=== PATIENT | female | born 1940 | race Caucasian/White ===

== ENCOUNTER 2021-01-28 14:16 | Emergency (ER) | payer MEDICARE, BC ==
--- NOTE | 2021-01-28 15:06 | ED Physician Documentation ---
History of Present Illness - Stated complaint Stated Complaint: FEVER,WEAKNESS,ACHY - Chief complaint Chief Complaint: General - History obtained from History obtained from: Patient, Family - History of Present Illness Timing: How many days ago (3) Pain level max: 3 Pain level now: 2 - Additonal information Additional information: Patient is a 80-year-old female who states that for the past 2 to 3 days she has had runny nose, congestion, sore throat and dry cough. Has not received her Covid vaccination. Has not taken anything for this. Is not on any medications at home. No nausea or vomiting. Small amount of diarrhea. No abdominal pain. She did have pneumonia several years ago. Nothing makes it better or worse. Review of Systems Ten Systems: 10 systems reviewed and negative Constitutional: denies: Fever, Chills Nose: reports: Congestion Throat: reports: Sore throat Cardiac: denies: Chest pain / pressure, Palpitations Respiratory: reports: Cough. denies: Dyspnea, Wheezing GI: denies: Abdominal Pain, Nausea, Vomiting, Diarrhea Skin: denies: Rash Musculoskeletal: denies: Neck pain, Back pain Neurologic: denies: Headache PD PAST MEDICAL HISTORY - Past Medical History Past Medical History: No - Present Medications Home Medications: Ambulatory Orders Medication Instructions Recorded Confirmed Benzonatate [Tessalon] 200 mg PO TID PRN #30 cap 01/28/21 Cetirizine HCl/Pseudoephedrine 1 each PO BID PRN #30 ea 01/28/21 [Zyrtec-D Tablet] - Allergies Allergies/Adverse Reactions: Allergies Allergy/AdvReac Type Severity Reaction Status Date / Time No Known Drug Allergies Allergy Verified 01/28/21 14:27 - Social History Does the pt smoke?: No Smoking Status: Never smoker Does the pt drink ETOH?: No Does the pt have substance abuse?: No - Immunizations Immunizations are current?: Yes PD ED PE NORMAL - Vitals Vital signs reviewed: Yes - General General: Alert and oriented X 3, No acute distress, Well developed/nourished - HEENT HEENT: PERRL, Ears normal, Moist mucous membranes, Other (Mild posterior pharyngeal erythema without tonsillar exudates. Appears consistent with postnasal drip. No sinus tenderness.) - Neck Neck: Supple, no meningeal sign, No adenopathy - Cardiac Cardiac: RRR, Strong equal pulses - Respiratory Respiratory: No respiratory distress, Clear bilaterally - Abdomen Abdomen: Soft, Non tender, Non distended - Back Back: No CVA TTP, No spinal TTP - Derm Derm: Warm and dry - Extremities Extremities: No edema - Neuro Neuro: Alert and oriented X 3 - Psych Psych: Normal mood, Normal affect Results - Vitals Vitals: Vital Signs - 24 hr 01/28/21 01/28/21 01/28/21 14:27 14:34 16:34 Temperature 37.3 C 37.3 C 36.8 C Heart Rate 75 75 67 Respiratory 16 16 16 Rate Blood Pressure 155/79 H 155/79 H 118/72 O2 Saturation 100 100 95 Oxygen O2 Source Room air - Rads (name of study) Chest x-ray Radiology: Prelim report reviewed, EMP read contemporaneously, See rad report (No acute abnormality) PD MEDICAL DECISION MAKING - ED course Complexity details: reviewed results, re-evaluated patient, considered differential, d/w patient ED course: 80-year-old female presents to the emergency department with what appears to be a viral upper respiratory infection. No acute findings on x-ray. Covid test was sent. Patient is well-appearing, nontoxic. Afebrile. No hypoxia. No respiratory distress. Tolerating p.o. without difficulty. We will continue supportive care and have her follow-up with her doctor for further care. Patient counseled regarding signs and symptoms for which I believe and urgent re-evaluation would be necessary. Patient with good understanding of and agreement to plan and is comfortable going home at this time This document was made in part using voice recognition software. While efforts are made to proofread this document, sound alike and grammatical errors may occur. Departure - Departure Disposition: 01 Home, Self Care Clinical Impression: Viral URI Condition: Good Instructions: ED Viral Syndrome Follow-Up: your,doctor in 1 week if not better [Other] Prescriptions: Benzonatate [Tessalon] 200 mg PO TID PRN #30 cap PRN Reason: Cough Cetirizine HCl/Pseudoephedrine [Zyrtec-D Tablet] 1 each PO BID PRN #30 ea PRN Reason: nasal congestion Comments: Drink plenty of fluids and rest. Return if you worsen. You have a Covid test pending. You need to self quarantine until the result is done and negative. Do not leave your house. Do not get near anybody. The results should be done in 48 to 72 hours. We will call with a positive result, the fastest way to get a negative result for confirmation though is to go to the hospital website at [email or web address], click on the my [email or web address] tab and sign up for the patient portal. Discharge Date/Time: 01/28/21 16:58
--- NOTE | 2021-01-28 16:14 | XRAY Report ---
PROCEDURE: Chest 1 View X-Ray INDICATIONS: fever, cough TECHNIQUE: One view of the chest was acquired. COMPARISON: None FINDINGS: Surgical changes and devices: None. Lungs and pleura: No pleural effusions or pneumothorax. Lungs are clear. Mediastinum: Mediastinal contours appear normal. Heart size is normal. Bones and chest wall: No suspicious bony lesions. Overlying soft tissues appear unremarkable. IMPRESSION: No evidence acute pulmonary process. Reviewed by: Thom Brandt MD on 01/28/2021 3:13 PM [facility] Approved by: Thom Brandt MD on 01/28/2021 3:13 PM [facility] Station ID: [id number]
[2021-01-28 16:58] VITALS: BP 118/72
== END 2021-01-28 16:58 | disposition home or self-care (01) ==
LOC: ED 14:16
DX: U07.1 COVID-19 (principal); J06.9 Acute upper respiratory infection, unspecified
CPT/HCPCS: 71045; 99284; U0004

== ENCOUNTER 2023-01-17 15:19 | Day surgery (SDC) | payer MEDICARE, BC ==
[2023-01-17] MEDS ORDERED: SODIUM CHLORIDE 0.9% 1,000 ML IV STA (15:42)
[2023-01-17] MEDS ORDERED: ONDANSETRON 4 MG/2 ML VIAL IVP STA (15:42)
--- NOTE | 2023-01-17 15:42 | ED Physician Documentation ---
PD HPI ABD PAIN - Stated complaint Stated Complaint: ABD/LB PX, CHILLS, NAUSEA - Chief complaint Chief Complaint: Abd Pain - History obtained from History obtained from: Patient - Additional information Additional information: This is a very healthy 82-year-old woman with history of exploratory laparotomy in the early at [place] for infectious colitis. Otherwise she has not had any abdominal surgeries. At noon today she suddenly developed nausea with bloating and central abdominal pain radiating to the back. She is never had this before. Had a normal bowel movement this morning. PD PAST MEDICAL HISTORY - Present Medications Home Medications: Ambulatory Orders Medication Instructions Recorded Confirmed Benzonatate [Tessalon] 200 mg PO TID PRN #30 cap 01/28/21 Cetirizine HCl/Pseudoephedrine 1 each PO BID PRN #30 ea 01/28/21 [Zyrtec-D Tablet] - Allergies Allergies/Adverse Reactions: Allergies Allergy/AdvReac Type Severity Reaction Status Date / Time No Known Drug Allergies Allergy Verified 01/17/23 15:30 - Social History Does the pt smoke?: No Smoking Status: Never smoker Does the pt drink ETOH?: No Does the pt have substance abuse?: No - Immunizations Immunizations are current?: Yes PD ED PE NORMAL - Vitals Vital signs reviewed: Yes - General General: Alert and oriented X 3, No acute distress - Cardiac Cardiac: RRR, No murmur - Respiratory Respiratory: No respiratory distress, Clear bilaterally - Abdomen Abdomen: Other (Absent bowel sounds with minimal diffuse tenderness and no surgical signs.) - Neuro Neuro: Alert and oriented X 3, Normal speech Results - Vitals Vitals: Vital Signs - 24 hr 01/17/23 01/17/23 15:25 15:29 Temperature 36 C L 36.5 C Heart Rate 65 65 Respiratory 16 16 Rate Blood Pressure 174/78 H 174/78 H O2 Saturation 100 100 Oxygen O2 Source Room air - Labs Labs: Laboratory Tests 01/17/23 01/17/23 01/17/23 15:34 15:46 16:10 WBC 15.7 H RBC 4.99 Hgb 14.9 Hct 45.4 MCV 91.0 MCH 29.9 MCHC 32.8 RDW 12.4 Plt Count 263 MPV 10.3 Neut # (Auto) 13.2 H Lymph # (Auto) 1.7 Morris # (Auto) 0.7 Eos # (Auto) 0.0 Baso # (Auto) 0.0 Absolute Nucleated RBC 0.00 Nucleated RBC % 0.0 Sodium 139 Potassium 3.4 L Chloride 107 Carbon Dioxide 26 Anion Gap 6.0 BUN 16 Creatinine 0.7 Estimated GFR (MDRD) 81 L Glucose 137 H Calcium 8.6 Total Bilirubin 1.6 H AST 171 H ALT 112 H Alkaline Phosphatase 67 Total Protein 6.2 L Albumin 3.6 Globulin 2.6 Albumin/Globulin Ratio 1.4 Lipase 31 Urine Color YELLOW Urine Clarity CLEAR Urine pH 6.5 Ur Specific [place] 1.025 Urine Protein NEGATIVE Urine Glucose (UA) NEGATIVE Urine Ketones TRACE Urine Occult Blood NEGATIVE Urine Nitrite NEGATIVE Urine Bilirubin NEGATIVE Urine Urobilinogen 0.2 (NORMAL) Ur Leukocyte Esterase NEGATIVE Ur Microscopic Review NOT INDICATED Urine Culture Comments NOT INDICATED - Rads (name of study) CT abdomen pelvis suggestive of cholecystitis. Also left duplicated collecting system with some ureteral stones but no hydronephrosis. Relevant Findings:: Final report received, EMP independent interpretation of test PD Medical Decision Making - ED course ED course: 82-year-old woman presents with diffuse abdominal pain. On repeat examination after some IV Dilaudid she was feeling much better and her tenderness is localized to the right upper quadrant. CT and ultrasound imaging suggestive of cholecystitis. Discussed case with Dr. Simeon, our on-call surgeon at 5:45 PM and she will see the patient and plan for the OR tonight. Of note she will probably have to recover in the ED overnight because of lack of floor bed. Departure - Departure Disposition: ED Transfer to [facility] Clinical Impression: Cholecystitis Condition: Stable
[2023-01-17] MEDS ORDERED: HYDROmorphone 0.5 MG/0.5 ML SYRINGE IVP STA (15:45)
[2023-01-17 15:52] LABS: BASOPHILS % (AUTO) 0.3 %; EOSINOPHILS % (AUTO) 0.2 %; HCT - HEMATOCRIT 45.4 % (37.0-47.0); HGB - HEMOGLOBIN 14.9 g/dL (12.0-16.0); LYMPHOCYTES # (AUTO) 1.7 10^3/uL (1.5-3.5); LYMPHOCYTES % (AUTO) 10.8 %; MEAN CORPUSCULAR HEMOGLOBIN 29.9 pg (27.0-31.0); MEAN CORPUSCULAR HGB CONC 32.8 g/dL (32.0-36.0); MEAN PLATELET VOLUME 10.3 fL (7.9-10.8); MONOCYTES # (AUTO) 0.7 10^3/uL (0.0-1.0); MONOCYTES % (AUTO) 4.6 %; NEUTROPHILS # (AUTO) 13.2 10^3/uL (1.5-6.6); NEUTROPHILS % (AUTO) 83.8 %; PLT - PLATELET COUNT 263 10^3/uL (130-450); RED BLOOD COUNT 4.99 10^6/uL (4.20-5.40); RED CELL DISTRIBUTION WIDTH 12.4 % (12.0-15.0); WHITE BLOOD COUNT 15.7 x10^3/uL (4.8-10.8)
[2023-01-17 15:54] LABS: BILIRUBIN,URINE NEGATIVE (NEGATIVE); GLUCOSE, URINE (UA) NEGATIVE (NEGATIVE); KETONES,URINE (UA) TRACE mg/dL (NEGATIVE); LEUKOCYTE ESTERASE, URINE NEGATIVE (NEGATIVE); NITRITE,URINE NEGATIVE (NEGATIVE); OCCULT BLOOD,URINE NEGATIVE (NEGATIVE); PH,URINE 6.5 PH (5.0-7.5); PROTEIN,URINE NEGATIVE (NEGATIVE); UROBILINOGEN,URINE 0.2 (NORMAL) E.U./dL (NORMAL)
[2023-01-17 15:55] LABS: CLARITY,URINE CLEAR (CLEAR)
[2023-01-17 16:28] LABS: ALBUMIN 3.6 g/dL (3.2-5.5); ALBUMIN/GLOBULIN RATIO 1.4 (1.0-2.2); BILIRUBIN,TOTAL 1.6 mg/dL (0.2-1.0); CALCIUM 8.6 mg/dL (8.5-10.3); CREATININE 0.7 mg/dL (0.4-1.0); POTASSIUM 3.4 mmol/L (3.5-5.0); TOTAL PROTEIN 6.2 g/dL (6.7-8.2)
[2023-01-17] MEDS ORDERED: iohexoL-300 100 ML VIAL ONE (16:36)
[2023-01-17] MEDS ORDERED: iohexoL-300 100 ML VIAL IVP ONE (16:45)
--- NOTE | 2023-01-17 17:08 | CT Report ---
PROCEDURE: ABDOMEN/PELVIS W INDICATIONS: Abdominal pain, acute, nonlocalized, IV only CONTRAST: 100mL Omni 300 TECHNIQUE: After the administration of intravenous contrast, 5 mm thick sections acquired from the diaphragms to the symphysis. 5 mm thick coronal and sagittal reformats were acquired. For radiation dose reducti on, the following was used: automated exposure control, adjustment of mA and/or kV according to keisha ent size. COMPARISON: None FINDINGS: Image quality: Excellent. Lung bases and heart: Unremarkable. Liver: Subcentimter hypoattenuating liver lesions, too small to characterize by CT. Gallbladder and biliary tree: Cholelithiasis. Gallbladder distention with focal wall thickening along the gallbladder fossa. No pericholecystic edema. Spleen: No splenomegaly. Pancreas: No pancreatic ductal dilation. Adrenals: No adrenal nodule. Kidneys and ureters: Duplex left renal collecting system, with atrophy of the upper moiety and multip le sub-5 mm stones within the ureter, and a 6 mm stone in the left UVJ. Bowel and peritoneum: No bowel distension. No pathologic free fluid. Acute diverticulitis of the LOCA TION. Lymph nodes: No central or retroperitoneal adenopathy. Vessels: No infrarenal aortic aneurysm. PELVIS Reproductive organs: Unremarkable. Bladder: No abnormal wall thickening, accounting for underdistension. Pelvic lymph nodes: No pelvic adenopathy by size criteria. Bones: No aggressive osseous abnormality. Other: No significant ventral or inguinal hernia. IMPRESSION: Cholelithiasis with focal gallbladder wall thickening and gallbladder distention, concerning for azael y acute cholecystitis. Duplex left renal collecting system, with atrophy of the upper moiety and multiple sub-5 mm stones wi thin the ureter, and a 6 mm stone in the left UVJ. The lower pole moiety is not affected by these fin dings. Reviewed by: Glen Geiger on 01/17/2023 5:07 PM PDT Approved by: Glen Geiger on 01/17/2023 5:07 PM PDT Station ID: [id number]
--- NOTE | 2023-01-17 17:56 | Ultrasound Report ---
PROCEDURE: Abdomen Limited INDICATIONS: abd pain, eval gb TECHNIQUE: Real-time focused scanning was performed of the abdomen, with image documentation. COMPARISONS: None. FINDINGS: Liver measures 12 cm. Overall echogenicity is slightly increased. Right lobe cyst measures up to 1.3 cm. Positive Walls's sign. Cholelithiasis. CBD measures up to 7 mm. Pancreas is within normal limits where visualized. Right kidney measures 11 cm. Possible right pelvocaliectasis. IMPRESSION: Sonographic findings consistent with cholecystitis. Borderline dilated CBD measuring 7 mm. Consider M LIFT TE[employer] TECHNICIAN or ERCP if further evaluation is needed. Mildly coarsened echogenic liver, nonspecific but most commonly chronic fibrofatty infiltration. Possible mild right pelvocaliectasis, partially seen. Reviewed by: Rene Logan MD on 01/17/2023 5:54 PM PDT Approved by: Rene Logan MD on 01/17/2023 5:54 PM PDT Station ID: [id number]
[2023-01-17] MEDS ORDERED: MORPHINE 2 MG/ML CARPUJECT IVP PRN ×2 (18:31→19:06)
[2023-01-17] MEDS ORDERED: ONDANSETRON 4 MG/2 ML VIAL IVP PRN ×3 (18:31→22:12)
[2023-01-17] MEDS ORDERED: ceFAZolin 1 GM VIAL IVP STA (18:31)
--- NOTE | 2023-01-17 18:38 | SURGERY HX AND PHYSICAL(T) ---
Surgical History & Physical - Chief Complaint/HPI Chief Complaint: nausea History of Present Illness: This is an 82-year-old female who complains of acute onset of nausea and diffuse abdominal pain at approximately noon today. She ate at 930 this morning and had baked oatmeal. She has never had similar pain in the past. Over the next hour or two her pain worsened and migrated to the back prompting her to come to the emergency department. She denies any fevers or chills. She denies any vomiting. She denies any trouble with constipation, diarrhea, blood in her stool or unintentional weight loss. At the time of my exam, she is feeling somewhat better but notes this is likely due to pain medication. - PMH/PSH/Social Hx Does the pt have a hx of MRSA?: No General: Other (Diagnostic laparoscopy for colitis) Smoking Status: Never smoker Does the pt drink ETOH?: No Does the pt have substance abuse?: No - Family Hx Family Hx: Unremarkable - Home Meds and Allergies Allergies/Adverse Reactions: Allergies Allergy/AdvReac Type Severity Reaction Status Date / Time No Known Drug Allergies Allergy Verified 01/17/23 15:30 - Review of Systems Constitutional: Other (A complete 10 point review of symptoms is otherwise ne gative except for that noted in HPI and PMH.) - Vital Signs Heart Rate: 65 Blood Pressure: 174/78 Temperature: 36.5 C Respiratory Rate: 16 O2 Saturation: 100 Weight (kg): 61.235 kg Height: 1.57 m - Physical Exam Comments/Other: GEN: No acute distress, appears younger than stated age, alert and oriented HEENT: NCAT, MMM, EOMI NEURO: CN II-XII grossly intact, no obvious focal deficits CV: RRR PULM: Nonlabored, on room air ABD: soft, point tenderness in the right upper quadrant with deep palpation, questionable Walls sign, otherwise nontender, no rebound or guarding CIRCULATORY: no clubbing, cyanosis, or edema SKIN: no lesions appreciated LYMPH: no obvious lymphadenopathy MSK: 4/4 strength in all extremities PSYCH: Affect is appropriate Imaging: Sono 01/17/23- Sonographic findings consistent with cholecystitis. Borderline dilated CBD measuring 7 mm. Consider MRCP or ERCP if further evaluation is needed. Mildly coarsened echogenic liver, nonspecific but most commonly chronic fibrofatty infiltration. Possible mild right pelvocaliectasis, partially seen. On my intrepretation, patient has gallstones with borederline wall thickening and no PCF. CBD is also borderline large. CT 01/17/23- Cholelithiasis with focal gallbladder wall thickening and gallbladder distention, concerning for early acute cholecystitis. Duplex left renal collecting system, with atrophy of the upper moiety and multiple sub-5 mm stones within the ureter, and a 6 mm stone in the left UVJ. The lower pole moiety is not affected by these findings. On my review of the images, +gallstones, minimal surrounding inflammation I personally reviewed the images and reports and independently intrepreted the above studies. - Patient Review Patient Review: Problems were reviewed with the patient during this visit. Medications were reviewed with the patient during this visit. Allergies were reviewed this patient during this visit. Pertinent Tests Reviewed: All pertitent test for this patient were reviewed. - Assessment & Plan Assessment and Plan: This is an 82-year-old female with: 1. Early acute cholecystitis The patient's imaging, history, labs, and physical exam are consistent with this diagnosis -I discussed the findings from the patient's imaging with the patient. She is feeling somewhat better, but continues to have some nausea and pain. After discussing options including a p.o. trial with possible dismissal home and elective resection of her gallbladder versus taking out her gallbladder today, the patient would rather proceed with surgery at this time. I think this is prudent given her frequent travel plans. We discussed the risks, benefits, and alternatives of laparoscopic cholecystectomy including bleeding, infection, damage to surrounding structures, bile leakage, damage to the common bile duct, possible need for an open procedure, and the need for further surgeries or procedures. The patient voiced understanding, her questions were answered, and she wished to proceed. PAR-Q. A consent was signed by the patient in the emergency department. The patient's , Lino, was also present for the discussion, and is agreeable to the plan. -NPO until after surgery -Plan for surgery tonight, and likely discharge tomorrow morning -I would like the patient to follow-up with me in clinic in 2 weeks.
[2023-01-17] MEDS ORDERED: ROCURONIUM 50 MG/5 ML VIAL ONE (18:54)
[2023-01-17] MEDS ORDERED: LIDOCAINE-PF 2% 10 ML AMP SUBQ ONE (18:54)
[2023-01-17] MEDS ORDERED: PROPOFOL 200 MG/20 ML VIAL IVP ONE (18:54)
[2023-01-17] MEDS ORDERED: metroNIDAZOLE 500 MG/100 ML 500 MG/100 ML BAG IV ONE (19:00)
[2023-01-17] MEDS ORDERED: ceFAZolin 2 GM in SODIUM CHLORIDE 0.9% 100ML 100 ML IV ONE (19:00)
[2023-01-17] MEDS ORDERED: fentaNYL 100 MCG/2 ML VIAL IVP PRN (19:06)
[2023-01-17] MEDS ORDERED: ATROPINE ABBOJECT 1 MG/10 ML SYRINGE IVP PRN (19:06)
[2023-01-17] MEDS ORDERED: ePHEDrine 50 MG/ML VIAL IVP PRN (19:06)
[2023-01-17] MEDS ORDERED: METOCLOPRAMIDE 10 MG/2 ML VIAL IVP PRN (19:06)
[2023-01-17] MEDS ORDERED: HYDROmorphone 0.5 MG/0.5 ML SYRINGE IVP PRN (19:06)
[2023-01-17] MEDS ORDERED: NALOXONE 0.4 MG/ML VIAL IVP PRN (19:06)
--- NOTE | 2023-01-17 19:06 | ANESTHESIA ---
Pre-Anesthesia VS, & Labs - Diagnosis cholecystitis - Procedure lap [email or web address] Vital Signs: Temp Pulse Resp BP Pulse Ox O2 Flow Rate 36.5 C 65 16 174/78 H 100 01/17/23 18:45 01/17/23 18:45 01/17/23 18:45 01/17/23 18:45 01/17/23 18:45 Height: 5 ft 2 in Weight (kg): 61.235 kg Body Mass Index: 24.7 BMI Classification: Normal - NPO >8 hours - Is Patient ?: No - Lab Results Current Lab Results: Laboratory Tests 01/17/23 16:10: Sodium 139, Potassium 3.4 L, Chloride 107, Carbon Dioxide 26, Anion Gap 6.0, BUN 16, Creatinine 0.7, Estimated GFR (MDRD) 81 L, Glucose 137 H, Calcium 8.6, Total Bilirubin 1.6 H, AST 171 H, ALT 112 H, Alkaline Phosphatase 67, Total Protein 6.2 L, Albumin 3.6, Globulin 2.6, Albumin/Globulin Ratio 1.4, Lipase 31 01/17/23 15:46: WBC 15.7 H, RBC 4.99, Hgb 14.9, Hct 45.4, MCV 91.0, MCH 29.9, MCHC 32.8, RDW 12.4, Plt Count 263, MPV 10.3, Neut # (Auto) 13.2 H, Lymph # (Auto) 1.7, Boyd # (Auto) 0.7, Eos # (Auto) 0.0, Baso # (Auto) 0.0, Absolute Nucleated RBC 0.00, Nucleated RBC % 0.0 Fish Bones: 01/17/23 15:46 01/17/23 16:10 Home Medications and Allergies Active Medications Sodium Chloride (Normal Saline 0.9%) 1,000 mls @ 125 mls/hr IV .Q8H LOLLY Cefazolin Sodium 2 gm/ Sodium (Chloride) 100 mls @ 200 mls/hr IV ONCE ONE Stop: 01/17/23 19:29 Metronidazole (Flagyl 500 Mg/100 Ml) 500 mg in 100 mls @ 100 mls/hr IV ONCE ONE Stop: 01/17/23 19:59 Morphine Sulfate (Morphine 2 Mg/Ml Carpuject) 4 mg IVP Q2HR PRN PRN Reason: PAIN >8 Ondansetron HCl (Ondansetron 4 Mg/2 Ml Vial) 4 mg IVP Q6HR PRN PRN Reason: Nausea / Vomiting Allergies/Adverse Reactions: Allergies Allergy/AdvReac Type Severity Reaction Status Date / Time No Known Drug Allergies Allergy Verified 01/17/23 15:30 Anes History & Medical History - Anesthetic History Anesthesia Complications: reports: Slow wake-up Family history of Anesthesia Complications: Denies Family history of Malignant Hyperthermia: Denies - Medical History Cardiovascular: reports: None Pulmonary: reports: None Gastrointestinal: reports: Other (cholecystitis) Urinary: reports: None Neuro: reports: None Musculoskeletal: reports: None Endocrine/Autoimmune: reports: None Smoking Status: Never smoker Psychosocial: reports: No issues indicated History of Cancer?: Yes - Surgical History General: reports: Other (Diagnostic laparoscopy for colitis) Dermatologic: reports: Skin grafts, Skin cancer surgery, Other (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
[2023-01-17] MEDS ORDERED: LIDOCAINE 1%-EPI 1:100000 20 ML MDV ONE (19:08)
[2023-01-17] MEDS ORDERED: BUPIVACAINE 0.25% PF 30 ML VIAL ONE (19:09)
[2023-01-17] MEDS ORDERED: iohexoL-240 10 ML VIAL IVP ONE ×2 (19:12→21:31)
[2023-01-17] MEDS ORDERED: ceFAZolin 1 GM VIAL ONE (19:39)
[2023-01-17] MEDS ORDERED: metroNIDAZOLE 500 MG/100 ML 500 MG/100 ML BAG ONE (19:43)
[2023-01-17] MEDS ORDERED: GLYCOPYRROLATE 1 MG/5 ML VIAL ONE (19:44)
[2023-01-17] MEDS ORDERED: BUPIVACAINE 0.25% PF 30 ML VIAL SUBQ ONE ×2 (19:52)
[2023-01-17] MEDS ORDERED: LIDOCAINE 1%-EPI 1:100000 20 ML MDV SUBQ ONE ×2 (19:52)
[2023-01-17] MEDS ORDERED: ACETAMINOPHEN 1,000 MG/100 ML 1,000 MG/100 ML BAG IV ONE (19:53)
[2023-01-17] MEDS ORDERED: LACTATED RINGERS 1,000 ML IV SCH (20:00)
[2023-01-17] MEDS ORDERED: GLUCAGON 1 MG/ML VIAL ONE (21:24)
[2023-01-17] MEDS ORDERED: SUGAMMADEX 200 MG/2 ML VIAL IVP ONE (21:56)
[2023-01-17] MEDS ORDERED: ACETAMINOPHEN 325 MG TABLET PO PRN (22:12)
[2023-01-17] MEDS ORDERED: IBUPROFEN 600 MG TABLET PO PRN (22:12)
[2023-01-17] MEDS ORDERED: LACTATED RINGERS 1,000 ML IV ONE (22:15)
--- NOTE | 2023-01-17 22:18 | OPERATIVE REPORT ---
Operative Report - General Procedure Date: 01/17/23 Planned Procedure: laparoscopic cholecystectomy with cholangiogram, possible open Pre-Op Diagnosis: acute cholecystitis Procedure Performed: laparoscopic cholecystectomy with cholangiogram Post Op Diagnosis: acute cholecystitis, possible choledocholithiasis, cholelithiasis - Procedure Note Primary Surgeon: Dr. Charlene Simeon Anesthesia Provider: Yareli Gonzalez CRNA Anesthesia Technique: General ET tube, Local Pathology: gallbladder and contents, sent to pathology Estimated Blood Loss (mL): 20 Indications: Patient presented with a 1 day history of abdominal pain. Her laboratory studies and imaging are consistent with acute cholecystitis. She was seen and evaluated in the emergency department. We discussed the risks, benefits, and alternatives of laparoscopic cholecystectomy including bleeding, infection, damage to surrounding structures, and the need for further surgeries or procedures. The patient voiced understanding, her questions were answered, and she wished to proceed. A consent was signed by the patient prior to surgery. Findings: 1.Poor filling of the duodenum on cholangiogram even after administration of glucagon 2. cholelithiasis 3. early acute cholecystitis Complications: None - Other Other Information/Narrative: The patient was brought to the operative suite and placed in the supine position. General endotracheal anesthesia was induced. Preoperative antibiotics were given. ERAS protocol was not followed secondary to patient nausea. A preop surgical timeout was performed. Local anesthetic was injected into the skin and subcutaneous tissues just inferior to the umbilicus. An 15 blade scalpel was used to make a 12 mm longitudinal skin incision in this location, following the patient's previous surgical scar. Sharp dissection with electrocautery was used to dissect down to the fascia and the fascia was incised. 2 [id number] sutures of 0 Vicryl were placed in the fascia. The deep peritoneum was entered and a 10 mm Bob port was placed in this location. High flow insufflation was used to insufflate to 15 mmHg. Through this port, a 5 mm 30 degree laparoscope was inserted. On inspection of the abdomen no injury was caused on entry. Next, the patient was placed in reverse Trendelenburg and rotated slightly to the left. Two 5 mm ports were inserted in the right upper quadrant, one in the anterior axillary line and the other in the midclavicular line. Also, a 12 mm port was inserted in the subxiphoid region. All ports were placed by first anesthetizing the skin and subcutaneous tissues with local anesthetic, then by making an appropriate length incision with an 11 blade scalpel, and finally by placing the port under direct laparoscopic vision. Once the ports were in place, a ratcheted, toothed grasper was used to elevate the fundus of the gallbladder toward the patient's right shoulder. The gallbladder was noted to be very tense and a laparoscopic aspiration needle was placed into the lumen of the gallbladder and a significant amount of bile was returned. Once decompressed, the gallbladder was retracted toward the patient's right shoulder. Next, the peritoneum was incised starting at the hilum of the gallbladder and working toward the fundus along the gallbladder liver interface on the medial and lateral aspects of the gallbladder. Next, attention was returned to the hilum of the gallbladder. The alveolar tissues in this region were taken down with blunt and sharp dissection with electrocautery taking great care not to cauterize though any tissue I could not easily see through. Two ductal structures were isolated and skeletonized such that each ductal structure could be visualized with liver present on either s daisha. The cystic plate was also developed. At this time, it was felt that a critical view of safety had been obtained. The cystic artery was noted to branch low. Next, a clip was placed distally, that is toward the gallbladder, on the cystic duct and just proximal to this a ductotomy was performed. A cholangiogram catheter was placed within the duct and it was flushed with saline. There was no leakage and it flushed easily. Clips were also placed proximally and distally on the cystic artery. Full strength Isovue dye was then placed on the cholangiogram catheter and a cholangiogram was performed. The cholangiogram demonstrated poor filling of the duodenum. Glucagon was given to the patient and after 3 minutes, an additional cholangiogram was performed. The duodenum still did not feel well but no obvious stone was noted in the distal common bile duct. Next the cholangiogram catheter was removed. Two clips were placed proximally on the cystic duct. Between the 2 clips a Endoloop was placed as the cystic duct was under more pressure than typical given the distal common bile duct obstruction. The cystic duct and cystic artery were divided using laparoscopic scissors between the clips. Next the gallbladder was dissected off of the liver bed. Once it was completely freed, the gallbladder was placed in an Endo Catch bag and removed through the umbilical port. The umbilical port was replaced and suction and irrigation were used to remove any fluid from the right upper quadrant. This was done until the fluid returned was clear. Next, the fascial sutures were tied at the umbilical port. The remaining ports were removed under direct laparoscopic vision and the abdomen was deflated. Next, the skin edges were reapproximated with 4-0 Monocryl in an interrupted subcuticular fashion. A sterile dressing of skin glue was placed. The patient tolerated the procedure well. The patient was extubated in the operating room and transferred to the recovery room in stable condition. There were no complications.
[2023-01-17] MEDS: fentaNYL 100 MCG/2 ML VIAL ONE ×2 (22:40→22:45)
--- NOTE | 2023-01-17 22:41 | ANESTHESIA POST OP EVALUATION ---
Anesthesia Post Eval - Post Anesthesia Eval Vitals: Last Vital Signs Temp 36.6 C 01/17/23 22:30 Pulse 84 01/17/23 22:30 Resp 16 01/17/23 22:30 BP 127/65 01/17/23 22:30 Pulse Ox 97 01/17/23 22:30 O2 Flow Rate CV Function Including HR & BP: Stable Pain Control: Satisfactory Nausea & Vomiting: Negative Mental Status: Baseline Respiratory Status: Airway Patent Hydration Status: Satisfactory Anesthesia Complications: None
[2023-01-17] MEDS ORDERED: SODIUM CHLORIDE 0.9% 1,000 ML IV SCH (23:00)
[2023-01-18] MEDS ORDERED: IBUPROFEN 400 MG TABLET PO PRN (03:41)
[2023-01-18] MEDS: SODIUM CHLORIDE 0.9% 1,000 ML IV SCH ×2 (04:17→13:05)
[2023-01-18] MEDS: oxyCODONE 5 MG TABLET PO PRN ×2 (04:17→13:05)
[2023-01-18 05:25] LABS: ALBUMIN 3.4 g/dL (3.2-5.5); ALBUMIN/GLOBULIN RATIO 1.5 (1.0-2.2); BILIRUBIN,TOTAL 2.3 mg/dL (0.2-1.0); CALCIUM 7.9 mg/dL (8.5-10.3); CREATININE 0.7 mg/dL (0.4-1.0); POTASSIUM 3.6 mmol/L (3.5-5.0); TOTAL PROTEIN 5.6 g/dL (6.7-8.2)
--- NOTE | 2023-01-18 08:18 | PROVIDER PROGRESS NOTE ---
Subjective - General Procedure Date: 01/17/23 Post Op Days: 1 Procedure Performed: renata arteaga with IOC - Review of Systems Wound/Incisions: positive: Healing well - Other Other Information/Narrative: Tolerating clears. No nausea this AM. She is feeling much better this AM. Objective - Patient Data Reviewed Vital Signs: Yes Vital Signs: Vital Signs x48h Temp Pulse Pulse Resp BP BP Pulse Ox 01/18/23 08:07 36.6 C 66 18 132/60 H 98 01/18/23 04:45 36.6 C 64 64 16 109/49 L 109/49 L 100 01/18/23 03:45 59 L 118/52 L 100 01/18/23 02:45 59 L 125/56 L 100 01/18/23 01:45 63 114/49 L 100 01/18/23 00:45 59 L 111/48 L 100 O2 Flow Rate 01/18/23 08:07 1 01/18/23 04:45 1 01/18/23 03:45 01/18/23 02:45 01/18/23 01:45 01/18/23 00:45 Weight: Weight 01/16/23 01/17/23 01/18/23 23:59 23:59 23:59 Weight (kg) 61.235 kg Intake & Output: Intake and Output Totals x24h 01/16/23 01/17/23 01/18/23 23:59 23:59 23:59 Intake Total 1000 Output Total 425 Balance 1000 -425 - Lab Results Lab Results: 01/17/23 15:46 01/18/23 04:43 Other Lab Results: Lab Results x24hrs 01/18/23 01/17/23 01/17/23 Range/Units 04:43 16:10 15:46 WBC 15.7 H (4.8-10.8) x10^3/uL RBC 4.99 (4.20-5.40) 10^6/uL Hgb 14.9 (12.0-16.0) g/dL Hct 45.4 (37.0-47.0) % MCV 91.0 (81.0-99.0) fL MCH 29.9 (27.0-31.0) pg MCHC 32.8 (32.0-36.0) g/dL RDW 12.4 (12.0-15.0) % Plt Count 263 (130-450) 10^3/uL MPV 10.3 (7.9-10.8) fL Neut # (Auto) 13.2 H (1.5-6.6) 10^3/uL Lymph # (Auto) 1.7 (1.5-3.5) 10^3/uL Motley # (Auto) 0.7 (0.0-1.0) 10^3/uL Eos # (Auto) 0.0 (0.0-0.7) 10^3/uL Baso # (Auto) 0.0 (0.0-0.1) 10^3/uL Absolute Nucleated RBC 0.00 x10^3/uL Nucleated RBC % 0.0 /100WBC Sodium 138 139 (135-145) mmol/L Potassium 3.6 3.4 L (3.5-5.0) mmol/L Chloride 105 107 (101-111) mmol/L Carbon Dioxide 25 26 (21-32) mmol/L Anion Gap 8.0 6.0 (6-13) BUN 11 16 (6-20) mg/dL Creatinine 0.7 0.7 (0.4-1.0) mg/dL Estimated GFR (MDRD) 81 L 81 L (>89) Glucose 117 H 137 H (70-100) mg/dL Calcium 7.9 L 8.6 (8.5-10.3) mg/dL Total Bilirubin 2.3 H 1.6 H (0.2-1.0) mg/dL AST 321 H 171 H (10-42) IU/L ALT 296 H 112 H (10-60) IU/L Alkaline Phosphatase 70 67 (42-121) IU/L Total Protein 5.6 L 6.2 L (6.7-8.2) g/dL Albumin 3.4 3.6 (3.2-5.5) g/dL Globulin 2.2 2.6 (2.1-4.2) g/dL Albumin/Globulin Ratio 1.5 1.4 (1.0-2.2) Lipase 26 31 (22-51) U/L Urine Color Urine Clarity (CLEAR) Urine pH (5.0-7.5) PH Ur Specific [place] (1.002-1.030) Urine Protein (NEGATIVE) mg/dL Urine Glucose (UA) (NEGATIVE) mg/dL Urine Ketones (NEGATIVE) mg/dL Urine Occult Blood (NEGATIVE) Urine Nitrite (NEGATIVE) Urine Bilirubin (NEGATIVE) Urine Urobilinogen (NORMAL) E.U./dL Ur Leukocyte Esterase (NEGATIVE) Ur Microscopic Review Urine Culture Comments 01/17/23 Range/Units 15:34 WBC (4.8-10.8) x10^3/uL RBC (4.20-5.40) 10^6/uL Hgb (12.0-16.0) g/dL Hct (37.0-47.0) % MCV (81.0-99.0) fL MCH (27.0-31.0) pg MCHC (32.0-36.0) g/dL RDW (12.0-15.0) % Plt Count (130-450) 10^3/uL MPV (7.9-10.8) fL Neut # (Auto) (1.5-6.6) 10^3/uL Lymph # (Auto) (1.5-3.5) 10^3/uL Motley # (Auto) (0.0-1.0) 10^3/uL Eos # (Auto) (0.0-0.7) 10^3/uL Baso # (Auto) (0.0-0.1) 10^3/uL Absolute Nucleated RBC x10^3/uL Nucleated RBC % /100WBC Sodium (135-145) mmol/L Potassium (3.5-5.0) mmol/L Chloride (101-111) mmol/L Carbon Dioxide (21-32) mmol/L Anion Gap (6-13) BUN (6-20) mg/dL Creatinine (0.4-1.0) mg/dL Estimated GFR (MDRD) (>89) Glucose (70-100) mg/dL Calcium (8.5-10.3) mg/dL Total Bilirubin (0.2-1.0) mg/dL AST (10-42) IU/L ALT (10-60) IU/L Alkaline Phosphatase (42-121) IU/L Total Protein (6.7-8.2) g/dL Albumin (3.2-5.5) g/dL Globulin (2.1-4.2) g/dL Albumin/Globulin Ratio (1.0-2.2) Lipase (22-51) U/L Urine Color YELLOW Urine Clarity CLEAR (CLEAR) Urine pH 6.5 (5.0-7.5) PH Ur Specific [place] 1.025 (1.002-1.030) Urine Protein NEGATIVE (NEGATIVE) mg/dL Urine Glucose (UA) NEGATIVE (NEGATIVE) mg/dL Urine Ketones TRACE (NEGATIVE) mg/dL Urine Occult Blood NEGATIVE (NEGATIVE) Urine Nitrite NEGATIVE (NEGATIVE) Urine Bilirubin NEGATIVE (NEGATIVE) Urine Urobilinogen 0.2 (NORMAL) (NORMAL) E.U./dL Ur Leukocyte Esterase NEGATIVE (NEGATIVE) Ur Microscopic Review NOT INDICATED Urine Culture Comments NOT INDICATED - Current Medications Current Medications: Current Medications Generic Name Dose Route Start Last Admin Trade Name Freq PRN Reason Stop Dose Admin Sodium Chloride 1,000 mls @ 125 mls/hr 01/17/23 19:00 01/18/23 04:17 Normal Saline 0.9% IV 125 mls/hr .Q8H LOLLY Administration Oxycodone HCl 5 mg 01/17/23 22:12 01/18/23 04:17 Oxycodone 5 Mg Tablet PO 5 mg Q4HR PRN Administration PAIN >8 - Physical Exam Wound/Incisions: positive: Dressing dry and intact, No drainage General Appearance: positive: No acute distress, Alert Eyes Bilateral: positive: PERRL, EOMI ENT: positive: No signs of dehydration Neck: positive: Trachea midline Respiratory: positive: No respiratory distress Cardiovascular: positive: Regular rate & rhythm Abdomen: positive: Tenderness (appropriate post op). negative: Guarding, Rebound Skin: positive: No rash Extremities: positive: Full ROM Neurologic/Psychiatric: positive: Oriented x3 Impression/Plan - Problem List Problem List: 82 y/o F with: acute cholecystitis and choledocholithiasis - lap jenni with IOC on 01/18 - prolonged surgery time, patient on O2 this AM - plan for MRCP this AM as LFT's are still elevated and cholangiogram did not show good filling of the duodenum - if stone present, patient will need ERCP. This is not available here and patient will likely need transfer. - I spoke with and if patient needs transfer/ERCP, she recommends patient be changed to observation status. Patient will be followed by Dr. Byers today.
[2023-01-18] MEDS ORDERED: GADOBUTROL 7.5 MMOL/7.5 ML VIAL ONE (11:49)
[2023-01-18] MEDS ORDERED: GADOBUTROL 7.5 MMOL/7.5 ML VIAL IVP ONE (12:55)
--- NOTE | 2023-01-18 13:16 | MRI Report ---
PROCEDURE: MRCP W/WO INDICATIONS: obstructed cbd on cholangiogram, increasing LFTs CONTRAST: GADAVIST 6.1 ML TECHNIQUE: Coronal ultra fast SE through the abdomen, axial 2-D spoiled GE in- and [id number], and breath-hold T2 FSE with fat saturation through the biliary system and pancreas. Oblique coronal and axial thin- slice ultra fast SE, radial thick-slab ultra fast SE centered on the extrahepatic bile ducts. COMPARISON: CT 01/18/2020 FINDINGS: Image quality: Excellent. Gallbladder: Surgically absent. Trace edema within the surgical bed. Biliary tree: Prominent, but within normal limits accounting for a post-cholecystectomy state. The sm ooth tapering as the common bile duct approaches the ampulla. Pancreas: No pancreatic ductal dilation. Lung bases and heart: Unremarkable. Liver: No solid mass. Multiple hepatic cysts. Spleen: No splenomegaly. Adrenals: No adrenal nodule. Kidneys and ureters: No hydronephrosis. No renal cystic lesion which requires follow up. No solid mas s. Bowel and peritoneum: No bowel distension. No pathologic free fluid. Lymph nodes: No central or retroperitoneal adenopathy. Vessels: No infrarenal aortic aneurysm. Bones: No aggressive osseous abnormality. Other: No significant ventral hernia. IMPRESSION: Interval cholecystectomy. No filling defect within the common bile duct to suggest choledocholithiasi s. Findings on cholangiogram could be explained by interval or edema in the setting of recent stone p assage. Reviewed by: Glen Geiger on 01/18/2023 1:14 PM PDT Approved by: Glen Geiger on 01/18/2023 1:14 PM PDT Station ID: [id number]
--- NOTE | 2023-01-18 13:19 | XRAY Report ---
PROCEDURE: OR C-Arm Procedure INDICATIONS: CHOLECYSTITIS FLUORO TIME: 0.7min TECHNIQUE: Fluoroscopic guidance utilized for intraoperative cholangiogram. COMPARISON: None. FINDINGS: Cholangiogram demonstrates tapering of the common bile duct as it approaches the ampulla. There is no definite stone visualized, and contrast passes into the ampulla. IMPRESSION: No choledocholithiasis identified. Reviewed by: Glen Geiger on 01/18/2023 1:17 PM PDT Approved by: Glen Geiger on 01/18/2023 1:17 PM PDT Station ID: [id number]
[2023-01-18 13:20] VITALS: BP 130/64
== END 2023-01-18 16:10 | disposition home or self-care (01) ==
LOC: ED 15:19 → SDS 18:34 → MS2 22:36 → SDS 01-18 16:10
PROVIDERS: ATTEND Surgery
PROC: BF101ZZ Fluoroscopy of Bile Ducts using Low Osmolar Contrast (ICD-10-PCS; 2023-01-17)
PROC: 0FT44ZZ Resection of Gallbladder, Percutaneous Endoscopic Approach (ICD-10-PCS; principal; 2023-01-17 19:30)
DX: K80.12 Calculus of gallbladder with acute and chronic cholecystitis without obstruction (principal)
CPT/HCPCS: 36415; 47563; 74177; 74183; 76705; 80053; 81003; 83690; 85025; 96374; 99284; 99285; A9270; A9585; C1758; J0131; J1170; J7120; Q9966; Q9967; 81001; 87086